=== PATIENT | female | born 1945 | race Caucasian/White ===

== ENCOUNTER 2018-02-21 12:30 | Emergency (ER) | payer OTHER, MEDICARE ==
--- OUTSIDE RECORDS SUMMARY | 2018-02-21 12:31 | XMS REPORT | Clinical Summary ---
:1945 Author Organization [facility] Address [address] [place] [address] Care Team Providers Name Role Phone Vige Spencer Austin Primary Care Provider Allergies Not on File Medications Not on file Active Problems Not on file Social History Tobacco Use Types Packs/Day Years Used Date Never Assessed Sex Assigned at Date Recorded Not on file Job Start Date Occupation Industry Not on file Not on file Not on file Travel History Travel Start Travel End No recent travel history available. Last Filed Vital Signs Not on file Plan of Treatment Not on file Results Not on fileafter 02/20/2017 Insurance Payer Benefit Plan / Group Subscriber ID Type Phone Address MEDICARE MEDICARE A B xxxxxxxxxx Medicare MCR SUPPLEMENT/INDIVIDUAL AARP/[facility] x[facility]xx [facility]
--- NOTE | 2018-02-21 13:21 | ER ---
Nurse's Notes [facility] Name: Steffany Miller Age: 73 yrs Sex: Female : 1945 Arrival Date: 02/21/2018 Time: 12:34 Bed 15 Private MD: Spencer Elam Diagnosis: Urinary tract infection, site not specified Presentation: 02/21 12:39 Presenting complaint: Patient states: "I feel like I have a UTI". Pt reports urinary aa5 urgency x 2 days ago. Pt denies burning with urination. Transition of care: patient was not received from another setting of care. Onset of symptoms was January 2018. Risk Assessment: Do you want to hurt yourself or someone else? Patient reports no desire to harm self or others. Initial Sepsis Screen: Does the patient meet any 2 criteria? No. Patient's initial sepsis screen is negative. Does the patient have a suspected source of infection? No. Patient's initial sepsis screen is negative. Care prior to arrival: None. 12:39 Method Of Arrival: Ambulatory aa5 12:39 Acuity: YVONNE 4 aa5 Triage Assessment: 12:45 General: Appears in no apparent distress. comfortable. rb1 12:45 General: Behavior is. rb1 Historical: - Allergies: 12:41 No Known Allergies; aa5 - PMHx: 12:41 Hypertension; Chronic Kidney Disease; aa5 - PSHx: 12:41 Appendectomy; aa5 - Immunization history:: Flu vaccine is not up to date. - Social history:: Smoking status: Patient/guardian denies using tobacco. - Ebola Screening: : No symptoms or risks identified at this time. Screenin:45 Abuse screen: Denies threats or abuse. Nutritional screening: No deficits noted. rb1 Tuberculosis screening: No symptoms or risk factors identified. Fall Risk None identified. Assessment: 12:45 General: Appears in no apparent distress. comfortable, Behavior is calm, cooperative, rb1 Denies fever. Pain: Complains of pain in suprapubic area Pain currently is 2 out of 10 on a pain scale. Pain began 2-3 days ago. Aggravated by urination. Neuro: Level of Consciousness is awake, alert, obeys commands, Oriented to person, place, time, situation. Cardiovascular: Capillary refill < 3 seconds is brisk in bilateral fingers. Respiratory: Airway is patent Respiratory effort is even, unlabored, Respiratory pattern is regular, symmetrical. GI: No signs and/or symptoms were reported involving the gastrointestinal system. : Reports urgency, urinary frequency. Derm: Skin is pink, warm \\T\\ dry. 13:45 Reassessment: Patient appears in no apparent distress at this time. No changes from rb1 previously documented assessment. Vital Signs: 12:41 BP 146 / 88; Pulse 65; Resp 18 S; Temp 98.6(TE); Pulse Ox 98% on R/A; Weight 58.97 kg aa5 (R); Height 5 ft. 4 in. (162.56 cm) (R); Pain 0/10; 13:40 BP 141 / 85; Pulse 71; Resp 19; Pulse Ox 99% on R/A; rb1 12:41 Body Mass Index 22.31 (58.97 kg, 162.56 cm) aa5 ED Course: 12:34 Patient arrived in ED. sb2 12:35 Spenecr Elam MD is Private Physician. sb2 12:40 Triage completed. aa5 12:40 Arm band placed on. aa5 12:45 Floyd Higginbotham PA is PHCP. jr8 12:45 Nino James MD is Attending Physician. jr8 12:45 Patient has correct armband on for positive identification. Bed in low position. Call rb1 light in reach. Side rails up X 1. Pulse ox on. NIBP on. 13:08 Carmen Mason, JESSENIA is Primary Nurse. rb1 13:21 Spencer Elam MD is Referral Physician. jr8 13:30 Urine collected: clean catch specimen, cloudy. dh3 13:54 No provider procedures requiring assistance completed. Patient did not have IV access rb1 during this emergency room visit. Administered Medications: No medications were administered Outcome: 13:21 Discharge ordered by . jr8 13:54 Patient left the ED. rb1 13:54 Discharged to home ambulatory. rb1 13:54 Condition: stable 13:54 Discharge instructions given to patient, Instructed on discharge instructions, follow up and referral plans. medication usage, Demonstrated understanding of instructions, follow-up care, medications, Prescriptions given X 1. Addendum: 02/25/2018 08:05 Addendum: Culture Results: Positive urine culture. No further action required. Bacteria s s sensitive to prescribed antibiotic. Signatures: Florecita Escobedo RN RN aa5 Gianna Gil, RN RN ss Floyd Higginbotham PA PA jr8 Carmen Mason, RN RN rb1 Gauri Eid 3 La Wyman 2
--- NOTE | 2018-02-21 13:22 | EDPHYS ---
Physician Documentation [facility] Name: Steffany Miller Age: 73 yrs Sex: Female : 1945 Arrival Date: 02/21/2018 Time: 12:34 Bed 15 Private MD: Spencer Elam ED Physician Nino James HPI: 02/21 13:18 This 73 yrs old Female presents to ER via Ambulatory with complaints of jr8 Bladder Infection. 13:18 The patient presents with urinary symptoms, dysuria, frequency, urgency. Onset: The jr8 symptoms/episode began/occurred acutely, 2 day(s) ago. Modifying factors: The symptoms are alleviated by nothing, the symptoms are aggravated by urinating. Associated signs and symptoms: The patient has no apparent associated signs or symptoms. Severity of symptoms: At their worst the symptoms were mild, in the emergency department the symptoms are unchanged. The patient has not experienced similar symptoms in the past. The patient has not recently seen a physician. Historical: - Allergies: 12:41 No Known Allergies; aa5 - PMHx: 12:41 Hypertension; Chronic Kidney Disease; aa5 - PSHx: 12:41 Appendectomy; aa5 - Immunization history:: Flu vaccine is not up to date. - Social history:: Smoking status: Patient/guardian denies using tobacco. - Ebola Screening: : No symptoms or risks identified at this time. ROS: 13:18 Eyes: Negative for injury, pain, redness, and discharge, ENT: Negative for injury, jr8 pain, and discharge, Neck: Negative for injury, pain, and swelling, Cardiovascular: Negative for chest pain, palpitations, and edema, Respiratory: Negative for shortness of breath, cough, wheezing, and pleuritic chest pain, Abdomen/GI: Negative for abdominal pain, nausea, vomiting, diarrhea, and constipation, Back: Negative for injury and pain, MS/Extremity: Negative for injury and deformity, Skin: Negative for injury, rash, and discoloration, Neuro: Negative for headache, weakness, numbness, tingling, and seizure. 13:18 : Positive for urinary symptoms. Exam: 13:18 Eyes: Pupils equal round and reactive to light, extra-ocular motions intact. Lids and jr8 lashes normal. Conjunctiva and sclera are non-icteric and not injected. Cornea within normal limits. Periorbital areas with no swelling, redness, or edema. ENT: Nares patent. No nasal discharge, no septal abnormalities noted. Tympanic membranes are normal and external auditory canals are clear. Oropharynx with no redness, swelling, or masses, exudates, or evidence of obstruction, uvula midline. Mucous membranes moist. Neck: Trachea midline, no thyromegaly or masses palpated, and no cervical lymphadenopathy. Supple, full range of motion without nuchal rigidity, or vertebral point tenderness. No Meningismus. Cardiovascular: Regular rate and rhythm with a normal S1 and S2. No gallops, murmurs, or rubs. Normal PMI, no JVD. No pulse deficits. Respiratory: Lungs have equal breath sounds bilaterally, clear to auscultation and percussion. No rales, rhonchi or wheezes noted. No increased work of breathing, no retractions or nasal flaring. Abdomen/GI: Soft, non-tender, with normal bowel sounds. No distension or tympany. No guarding or rebound. No evidence of tenderness throughout. Back: No spinal tenderness. No costovertebral tenderness. Full range of motion. Skin: Warm, dry with normal turgor. Normal color with no rashes, no lesions, and no evidence of cellulitis. MS/ Extremity: Pulses equal, no cyanosis. Neurovascular intact. Full, normal range of motion. Neuro: Awake and alert, GCS 15, oriented to person, place, time, and situation. Cranial nerves II-XII grossly intact. Motor strength 5/5 in all extremities. Sensory grossly intact. Cerebellar exam normal. Normal gait. Vital Signs: 12:41 BP 146 / 88; Pulse 65; Resp 18 S; Temp 98.6(TE); Pulse Ox 98% on R/A; Weight 58.97 kg aa5 (R); Height 5 ft. 4 in. (162.56 cm) (R); Pain 0/10; 13:40 BP 141 / 85; Pulse 71; Resp 19; Pulse Ox 99% on R/A; rb1 12:41 Body Mass Index 22.31 (58.97 kg, 162.56 cm) aa5 MDM: 12:45 Patient medically screened. [facility] 13:18 Data reviewed: vital signs, nurses notes, lab test result(s), and as a result, I will jr discharge patient. Data interpreted: Pulse oximetry: on room air is 98 %. Interpretation: normal. Counseling: I had a detailed discussion with the patient and/or guardian regarding: the historical points, exam findings, and any diagnostic results supporting the discharge/admit diagnosis, lab results, the need for outpatient follow up, a family practitioner, to return to the emergency department if symptoms worsen or persist or if there are any questions or concerns that arise at home. 02/21 13:18 Order name: Urine Culture 8 02/21 13:18 Order name: Urine Microscopic Only; Complete Time: 13:50 jr8 02/21 13:18 Order name: Urine Dipstick-Ancillary (obtain specimen); Complete Time: 13:30 jr8 Administered Medications: No medications were administered Disposition: 02/21/18 13:21 Discharged to Home. Impression: Urinary tract infection, site not specified. - Condition is Stable. - Discharge Instructions: Urinary Tract Infection, Adult, [id number]. - Prescriptions for Augmentin 500- 125 mg Oral Tablet - take 1 tablet by ORAL route 2 times per day for 7 days; 14 tablet. - Medication Reconciliation Form, Thank You Letter, Antibiotic Education, Prescription Opioid Use form. - Follow up: Spencer Elam MD; When: As needed; Reason: Recheck today's complaints, Continuance of care, Re-evaluation by your physician. - Problem is new. - Symptoms have improved. Addendum: 03/01/2018 11:24 Co-signature as Attending Physician, Nino James MD I agree with the assessment and c [place] plan of care. Signatures: Dispatcher [employer] EDNino Bradshaw MD MD cha Calderon, Audri, RN RN aa5 Floyd Higginbotham PA PA jr8 Carmen Mason, RN RN rb1 Corrections: (The following items were deleted from the chart) 02/21 13:54 13:21 02/21/2018 13:21 Discharged to Home. Impression: Urinary tract infection, site rb1 not specified. Condition is Stable. Forms are Medication Reconciliation Form, Thank You Letter, Antibiotic Education, Prescription Opioid Use. Follow up: Spencer Elam; When: As needed; Reason: Recheck today's complaints, Continuance of care, Re-evaluation by your physician. Problem is new. Symptoms have improved. jr8
[2018-02-21 13:38] LABS: Urine Bacteria >50 /HPF (<20)
[2018-02-21 13:39] LABS: Urine Culture Reflex Order NOT NEEDED
[2018-02-21] MEDS ORDERED: AMOX/K CLAV 875 MG TAB ONE (13:43)
== END 2018-02-21 13:54 | disposition home or self-care (01) ==
LOC: ER 12:30
DX: N39.0 Urinary tract infection, site not specified (principal); I12.9 Hypertensive chronic kidney disease with stage 1 through stage 4 chronic kidney disease, or unspecified chronic kidney disease; N18.9 Chronic kidney disease, unspecified
CPT/HCPCS: 81015; 87077; 87086; 87088; 87186; 99283